=== PATIENT | male | born 1980 ===

== ENCOUNTER 2023-06-29 23:35 | Observation (INO) | payer OTHER ==
[~2023-06-29] VITALS: Ht 180.3 cm; Wt 70.3 kg
[~2023-06-29 23:35] MED LIST: BACITO TOP; BUPRENORPHIN-N1 EAC1 SL; INSULANI SC; NOVOLOG100 UNIT/2 SC; ONDA4ODT MM
[2023-06-30] MEDS ORDERED: Trimethoprim/Sulfamethoxazole DS Tab PO ONE (00:55)
[2023-06-30] MEDS ORDERED: Cephalexin Monohydrate 500 MG Cap PO ONE (00:55)
[2023-06-30 01:32] LABS: BASOPHILS ABSOLUTE AUTO 0.02 K/mm3 (0.00-0.23); BASOPHILS PERCENT AUTO 0 % (0-2); EOSINOPHILS ABSOLUTE AUTO 0.06 K/mm3 (0.00-0.68); EOSINOPHILS PERCENT AUTO 1 % (0-6); Hematocrit 36.3 % (37.0-53.0); Hemoglobin 11.9 g/dL (13.5-17.5); IMMATURE GRAN ABSOLUTE AUTO 0.02 K/mm3 (0.00-0.10); IMMATURE GRAN PERCENT AUTO 0 % (0-1); LYMPHOCYTES ABSOLUTE AUTO 1.55 K/mm3 (0.84-5.20); LYMPHOCYTES PERCENT AUTO 22 % (21-46); MONOCYTES ABSOLUTE AUTO 0.51 K/mm3 (0.16-1.47); MONOCYTES PERCENT AUTO 7 % (4-13); Mean Corpuscular HGB 30.1 pg (26.0-34.0); Mean Corpuscular HGB Conc 32.8 g/dL (31.5-36.5); Mean Corpuscular Volume 92 fL (80-100); Mean Platelet Volume 9.8 fL (9.1-12.4); NEUTROPHILS ABSOLUTE AUTO 4.96 K/mm3 (1.96-9.15); NEUTROPHILS PERCENT AUTO 70 % (41-73); Platelet Count 256 K/mm3 (150-400); RDW Coefficient Variation 12.3 % (11.7-14.2); RDW Standard Deviation 41.4 fL (35.1-46.3); Red Blood Cell Count 3.96 M/mm3 (4.30-5.90); White Blood Cell Count 7.12 K/mm3 (4.00-11.30)
[2023-06-30 01:51] LABS: Albumin, Blood 2.8 g/dL (3.4-5.0); Albumin/Globulin Ratio 0.9 (0.8-1.8); Bilirubin, Total 0.4 mg/dL (0.1-1.0); Bun/Creatinine Ratio 30.9 (12.0-20.0); Calcium, Blood 8.6 mg/dL (8.5-10.1); Creatinine, Blood 0.61 mg/dL (0.60-1.20); Potassium, Blood 3.5 mmol/L (3.5-5.5); Total Protein, Blood 5.8 g/dL (6.4-8.2)
[2023-06-30] MEDS ORDERED: NS 1,000 ML IV SCH ×2 (02:05→04:45)
[2023-06-30] MEDS ORDERED: CefTRIAXone Sodium 2,000 MG in NS 100 ML IV ONE (02:30)
[2023-06-30] MEDS ORDERED: Vancomycin HCL 1,500 MG in NS 250 ML IV ONE (02:35)
[2023-06-30] MEDS ORDERED: Buprenorphine HCL/Naloxone HCL 8MG-2MG Tab SL PRN (04:40)
[2023-06-30] MEDS ORDERED: Ondansetron HCl 2 MG / ML 2ML Vial IV PRN (04:50)
[2023-06-30] MEDS ORDERED: Acetaminophen 650 MG Supp PR PRN (04:50)
[2023-06-30] MEDS ORDERED: Nicotine 21 MG PATCH TOP SCH (05:00)
[2023-06-30 06:07] VITALS: BP 111/81
--- NOTE | 2023-06-30 06:35 | NUR ---
PHARMACY DROP OFF OF CONTROLLED SUBSTANCE. DROPPED OFF PT'S SUBOXONE TO PHARMACY. PHARMACY TO SEND A FORM BACK TO UNIT ONCE PROCESSED.
[2023-06-30 07:34] VITALS: BP 115/75
--- NOTE | 2023-06-30 07:37 | NUR ---
SUMMARY A/OX4. ROOM AIR, INDEPENDENT. NO REPORTS OF PAIN. L GREAT TOE CHRONIC ULCER, RIGHT HEEL ULCER, AND LEFT HAND HEALING BURN, PHOTOS TAKEN AND IN CHART. RECEIPT FROM PHARMACY FOR THE 4 SOBOXONE TABLETS PLACED IN FRONT OF CHART. PT HAS HOME INSULIN IN [facility]. RESIDES IN HOMELESS CAMP. SMOKER, NICOTINE PATCH TO LEFT ARM, REVENUE COLLECTOR PLACED IN LOCKED DRAWER ALONG WITH HOME ATORVASTATIN AND ASPIRIN. EDUCATED PT ON NEED FOR GI SPECIMEN COLLECTION, VERBALIZES UNDERSTANDING. CALL LIGHT IN REACH.
[2023-06-30] MEDS ORDERED: ATOR20 PO (08:12)
[2023-06-30] MEDS ORDERED: ASPI81CH PO (08:12)
[2023-06-30 08:39] LABS: BASOPHILS ABSOLUTE AUTO 0.03 K/mm3 (0.00-0.23); BASOPHILS PERCENT AUTO 1 % (0-2); EOSINOPHILS ABSOLUTE AUTO 0.06 K/mm3 (0.00-0.68); EOSINOPHILS PERCENT AUTO 1 % (0-6); Hematocrit 35.9 % (37.0-53.0); Hemoglobin 11.9 g/dL (13.5-17.5); IMMATURE GRAN ABSOLUTE AUTO 0.02 K/mm3 (0.00-0.10); IMMATURE GRAN PERCENT AUTO 0 % (0-1); LYMPHOCYTES ABSOLUTE AUTO 1.58 K/mm3 (0.84-5.20); LYMPHOCYTES PERCENT AUTO 26 % (21-46); MONOCYTES ABSOLUTE AUTO 0.56 K/mm3 (0.16-1.47); MONOCYTES PERCENT AUTO 9 % (4-13); Mean Corpuscular HGB Conc 33.1 g/dL (31.5-36.5); Mean Corpuscular Volume 90 fL (80-100); Mean Platelet Volume 10.3 fL (9.1-12.4); NEUTROPHILS ABSOLUTE AUTO 3.76 K/mm3 (1.96-9.15); NEUTROPHILS PERCENT AUTO 63 % (41-73); Platelet Count 256 K/mm3 (150-400); RDW Coefficient Variation 12.3 % (11.7-14.2); RDW Standard Deviation 40.6 fL (35.1-46.3); Red Blood Cell Count 3.97 M/mm3 (4.30-5.90); White Blood Cell Count 6.01 K/mm3 (4.00-11.30)
--- NOTE | 2023-06-30 08:42 | NUR ---
AMA NOTE: PT RECEIVED HIS BREAKFAST TRAY FROM [facility] THIS AM AND I HEARD YELLING AND THROWING OF OBJECTS FROM HIS ROOM. PT IMMEDIATELY STARTED YELLING "I'M LEAVING AMA, THIS IS BULLSHIT, YOU GUYS GAVE ME LIQUIDS." ATTEMPTED TO READ PT RISKS VS BENEFITS OF LEAVING AMA, PT REFUSED ME TO DISCUSS ANYTHING WITH HIM. TOLD PT I WOULD RETRIEVE HIS HOME SUBOXONE FROM THE PHARMACY. PT GIVEN HIS SUBOXONE. I REQUESTED TO TAKE OUT HIS IV IN WHICH HE REPLIED "I ALREADY TOOK IT OUT." I WAS NOT ABLE TO VERIFY IF HE ACTUALLY TOOK OUT HIS IV HE WAS ALREADY DRESSED AND SITE WAS COVERED UP. I ALSO GAVE HIM HIS HOME MEDICATION AND PROCUREMENT OFFICER WE HAD LOCKED UP IN THE DRAWER OUTSIDE HIS ROOM. PT GATHERED HIS BELONGINGS AND AMBULATED FROM HIS ROOM. LITHOGRAPHIC RETOUCHER APPRENTICE DYANI SIGNED REFUSED AMA FORM. DR. KEYS NOTIFIED PT LEFT AMA.
[2023-06-30] MEDS ORDERED: Enoxaparin 40 MG/0.4 ML SYR SC SCH (09:00)
[2023-06-30] MEDS ORDERED: Lactobacil 2-S.Thermo-Bifido 1 1 Cap PO SCH (09:00)
[2023-06-30] MEDS ORDERED: Famotidine 10 MG/ML 2ML Vial IV SCH (09:00)
[2023-06-30 09:08] LABS: Albumin, Blood 2.9 g/dL (3.4-5.0); Bilirubin, Total 0.4 mg/dL (0.1-1.0); Bun/Creatinine Ratio 29.5 (12.0-20.0); Calcium, Blood 8.4 mg/dL (8.5-10.1); Creatinine, Blood 0.58 mg/dL (0.60-1.20); Potassium, Blood 4.4 mmol/L (3.5-5.5); Total Protein, Blood 5.9 g/dL (6.4-8.2)
[2023-06-30] MEDS ORDERED: Vancomycin HCL 1,250 MG in NS 250 ML IV SCH (12:00)
== END 2023-06-30 08:47 | disposition left against medical advice (07) ==
LOC: ER 23:35 → MEDS 23:36
PROVIDERS: Emergency Medicine; Family Medicine; ADMIT Internal Medicine
DX: L03.032 Cellulitis of left toe (principal); K52.9 Noninfective gastroenteritis and colitis, unspecified; E87.21 Acute metabolic acidosis; F11.20 Opioid dependence, uncomplicated; E11.9 Type 2 diabetes mellitus without complications; F17.210 Nicotine dependence, cigarettes, uncomplicated; I10 Essential (primary) hypertension; Z59.00 Homelessness unspecified; Z88.0 Allergy status to penicillin; Z91.018 Allergy to other foods; Z79.4 Long term (current) use of insulin; Z79.899 Other long term (current) drug therapy
CPT/HCPCS: 36415; 71046; 73660; 80053; 82947; 83605; 85025; 87040; 96365; 96366; 96367; 99285; A9270; G0378; J0696; J3370; J7030; J7050

== ENCOUNTER 2023-08-20 18:55 | Emergency (ER) | payer OTHER ==
[~2023-08-20] VITALS: Ht 188 cm; Wt 95.2 kg
[~2023-08-20 18:55] MED LIST changes: +ASPI81CH PO; +ATOR20 PO
[2023-08-20] MEDS ORDERED: GABA100 PO (19:26)
[2023-08-20] MEDS ORDERED: Glucagon 1 MG/KIT VIAL IV ONE (19:35)
[2023-08-20] MEDS ORDERED: D5W-NS 1,000 ML IV SCH (19:35)
[2023-08-20 19:42] LABS: BASOPHILS ABSOLUTE AUTO 0.02 K/mm3 (0.00-0.23); BASOPHILS PERCENT AUTO 0 % (0-2); EOSINOPHILS ABSOLUTE AUTO 0.09 K/mm3 (0.00-0.68); EOSINOPHILS PERCENT AUTO 2 % (0-6); Hematocrit 38.6 % (37.0-53.0); Hemoglobin 13.1 g/dL (13.5-17.5); IMMATURE GRAN ABSOLUTE AUTO 0.02 K/mm3 (0.00-0.10); IMMATURE GRAN PERCENT AUTO 0 % (0-1); LYMPHOCYTES ABSOLUTE AUTO 1.58 K/mm3 (0.84-5.20); LYMPHOCYTES PERCENT AUTO 32 % (21-46); MONOCYTES ABSOLUTE AUTO 0.44 K/mm3 (0.16-1.47); MONOCYTES PERCENT AUTO 9 % (4-13); Mean Corpuscular HGB 31.3 pg (26.0-34.0); Mean Corpuscular HGB Conc 33.9 g/dL (31.5-36.5); Mean Corpuscular Volume 92 fL (80-100); Mean Platelet Volume 10.1 fL (9.1-12.4); NEUTROPHILS ABSOLUTE AUTO 2.78 K/mm3 (1.96-9.15); NEUTROPHILS PERCENT AUTO 57 % (41-73); Platelet Count 313 K/mm3 (150-400); RDW Coefficient Variation 13.4 % (11.7-14.2); RDW Standard Deviation 45.5 fL (35.1-46.3); Red Blood Cell Count 4.19 M/mm3 (4.30-5.90); White Blood Cell Count 4.93 K/mm3 (4.00-11.30)
[2023-08-20 19:54] LABS: Albumin, Blood 3.2 g/dL (3.4-5.0); Bilirubin, Total 0.5 mg/dL (0.1-1.0); Bun/Creatinine Ratio 18.7 (12.0-20.0); Calcium, Blood 8.3 mg/dL (8.5-10.1); Creatinine, Blood 0.59 mg/dL (0.60-1.20); Globulin, Blood 3.3 g/dL (2.2-4.0); Potassium, Blood 3.2 mmol/L (3.5-5.5); Total Protein, Blood 6.5 g/dL (6.4-8.2)
[2023-08-20 19:55] LABS: Base Excess Venous 0.9 mmol/L; Bicarbonate Venous 24.9 mmol/L (24.0-30.0); PCO2 Venous 45.7 mmHg (38-42); pH Blood Venous 7.37 (7.34-7.37)
[2023-08-20] MEDS ORDERED: Dextrose 10% 500 ML IV SCH (21:25)
[2023-08-20 22:15] VITALS: BP 112/73
== END 2023-08-21 01:07 | disposition home or self-care (01) ==
LOC: ER 18:55
PROVIDERS: Student in an Organized Health Care Education/Training Program
DX: E11.649 Type 2 diabetes mellitus with hypoglycemia without coma (principal); T38.3X5A Adverse effect of insulin and oral hypoglycemic [antidiabetic] drugs, initial encounter; I10 Essential (primary) hypertension; E78.00 Pure hypercholesterolemia, unspecified; Z79.899 Other long term (current) drug therapy; Z79.4 Long term (current) use of insulin; Z79.82 Long term (current) use of aspirin; Z88.0 Allergy status to penicillin; Z91.018 Allergy to other foods
CPT/HCPCS: 80053; 82010; 82803; 82947; 85025; 96361; 96374; 99283-25; J1610; J7042

== ENCOUNTER 2023-08-27 19:54 | Emergency (ER) | payer OTHER ==
[~2023-08-27] VITALS: Ht 180.3 cm; Wt 68.0 kg
[~2023-08-27 19:54] MED LIST changes: +GABA100 PO
[2023-08-27 20:00] VITALS: BP 113/78
[2023-08-27 23:26] LABS: Adenovirus F 40/41 Not Detected (NOT DETECT); Astrovirus Not Detected (NOT DETECT); Campylobacter Sp Not Detected (NOT DETECT); Cryptosporidium Not Detected (NOT DETECT); Cyclospora Cayetanensis Not Detected (NOT DETECT); E. Coli O157 Not Detected (NOT DETECT); Entamoeba Histolytica Not Detected (NOT DETECT); Enteroaggregative E. coli-EAEC Not Detected (NOT DETECT); Enteropathogenic E. coli-EPEC Detected (NOT DETECT); Enterotoxigenic E. coli-ETEC Not Detected (NOT DETECT); Giardia Lamblia Not Detected (NOT DETECT); Norovirus GI/GII Not Detected (NOT DETECT); Plesiomonas Shigelloides Not Detected (NOT DETECT); Rotavirus A Not Detected (NOT DETECT); Salmonella Sp Not Detected (NOT DETECT); Sapovirus Not Detected (NOT DETECT); Shiga Toxin-prod E. coli-STEC Not Detected (NOT DETECT); Shigella/Enteroin E. coli-EIEC Not Detected (NOT DETECT); Vibrio Cholerae Not Detected (NOT DETECT); Vibrio Sp Not Detected (NOT DETECT); Yersinia Enterocolitica Not Detected (NOT DETECT)
[2023-08-27] MEDS ORDERED: Azithromycin 250 MG Tab PO ONE (23:45)
[2023-08-27] MEDS ORDERED: AZIT500 PO (23:48)
== END 2023-08-27 23:56 | disposition home or self-care (01) ==
LOC: ER 19:54
PROVIDERS: Student in an Organized Health Care Education/Training Program
DX: R19.7 Diarrhea, unspecified (principal); E11.9 Type 2 diabetes mellitus without complications; I10 Essential (primary) hypertension; E78.00 Pure hypercholesterolemia, unspecified; Z79.4 Long term (current) use of insulin; Z79.82 Long term (current) use of aspirin; Z79.899 Other long term (current) drug therapy; Z88.0 Allergy status to penicillin; Z91.018 Allergy to other foods; Z59.00 Homelessness unspecified
CPT/HCPCS: 87507; 99284